=== PATIENT | male | born 1970 | race American Indian/Alaskan Native ===

== ENCOUNTER 2021-09-18 10:54 | Outpatient (CLI) | payer BC ==
--- NOTE | 2021-09-18 11:48 | XRay Report ---
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 Calcification a t the inferior aspect of the glenohumeral joint could represent heterotopic ossification or possibly calcium hydroxyapatite deposition. This could also represent old fracture fragments from glenoid. Rec ommend clinical correlation. SOFT TISSUES: No significant abnormality. ADDITIONAL FINDINGS: None. Signer Name: Raphael Walsh MD Signed: 09/18/2021 11:44 AM Workstation Name: [id number]
--- NOTE | 2021-09-18 11:52 | XRay Report ---
RIGHT HAND 4 VIEW(S) INDICATION / CLINICAL INFORMATION: rt hand pain COMPARISON: None available. FINDINGS: BONES / JOINT(S): No acute fracture or dislocation. There are degenerative changes of the radiocarpal joint. Irregularity at the dorsal lip of the radius likely represents sequela of prior wrist trauma. SOFT TISSUES: Nonspecific soft tissue swelling of the dorsum of the wrist. ADDITIONAL FINDINGS: None. Signer Name: Raphael Walsh MD Signed: 09/18/2021 11:47 AM Workstation Name: [id number]
== END 2021-09-18 10:55 | disposition home or self-care (01) ==
LOC: XRAY 10:54
PROVIDERS: ATTEND Orthopaedic Surgery
DX: M19.041 Primary osteoarthritis, right hand (principal); M79.89 Other specified soft tissue disorders; M25.712 Osteophyte, left shoulder; M19.012 Primary osteoarthritis, left shoulder